=== PATIENT | female | born 1945 | race Caucasian/White ===

== ENCOUNTER 2021-10-11 11:16 | Outpatient (CLI) | payer OTHER | END 2021-10-11 11:18 | disposition home or self-care (01) | LOC: SONOGRAMA 11:16 | PROVIDERS: ATTEND Pathology Anatomic Pathology & Clinical Pathology | DX: E04.1 Nontoxic single thyroid nodule (principal) ==

== ENCOUNTER 2022-09-23 07:13 | Outpatient (CLI) | payer OTHER | END 2022-09-23 07:20 | disposition home or self-care (01) | LOC: RX STUDY 07:13 | PROVIDERS: ATTEND Surgery | DX: K44.9 Diaphragmatic hernia without obstruction or gangrene (principal) ==